=== PATIENT | female | born 1990 | race Caucasian/White ===

== ENCOUNTER 2019-05-22 10:11 | Emergency (ER) | payer OTHER, SELFPAY ==
[2019-05-22 10:30] VITALS: BP 118/75; PULSE 103; RESP 16; TEMP 36.7; O2SAT 100
--- NOTE | 2019-05-22 10:40 | ED.EYEPROB ---
HPI - Eye Problem General Chief complaint: Eye Problems Stated complaint: right eye crusty and red Time Seen by Provider: 05/22/19 10:40 Source: patient and RN notes reviewed History of Present Illness HPI Narrative: Patient is a 28-year-old female presents the urgent care with complaints of right eye redness, tearing, pain. Patient states that started last night. Patient states that she did have her contacts out for sleeping but could not find her glasses in order to drive here. Therefore patient does have her contacts in. Patient denies any known trauma or injury to the eye. States that it was not matting but she does have a lot of clear drainage. No other acute complaints. Patient denies any visual changes. Patient states the eye is sensitive to light. No acute distress noted. Patient read the plan of care. Related Data Allergies Allergy/AdvReac Type Severity Reaction Status Date / Time hydrocodone AdvReac Severe Other Verified 05/22/19 10:41 Review of Systems Review of Systems: Narrative: CONSTITUTIONAL: Denies fever, chills, or sweats. EYES: Denies visual changes; reports of redness, irritation, sensitivity to light to the right eye with clear drainage ENT: Denies rhinorrhea, congestion, sore throat, or otalgia. CARDIOVASCULAR: Denies chest pain, palpitations, or edema. RESPIRATORY: Denies cough or dyspnea. GASTROINTESTINAL: Denies abdominal pain, nausea, vomiting, or diarrhea. GENITOURINARY: Denies dysuria or hematuria. SKIN: Denies rash or itching. MUSCULOSKELETAL: Denies back pain, joint pain, or myalgia. NEUROLOGIC: Denies headache, numbness, or weakness. PMFSH Comments At the time of my signature, I reviewed and agree with the nursing past medical, surgical, social, and family history. There is no relevant family history pertinent to the patient complaint. Exam Narrative: Exam Narrative: GENERAL: This is a well-nourished, well-developed patient, in no apparent distress. HEAD: normocephalic, atraumatic. EYES: PERRL. Sclera clear/white. Moderately injected right conjunctivo-with clear drainage. Right pupil reactive with slightly smaller pupils size then the left at 3mm. vision is grossly intact. EARS: External ears normal NOSE: External nose normal with no obvious nasal discharge THROAT: Mucous membranes moist NECK: Neck supple CARDIOVASCULAR: Regular rate and rhythm without murmurs, gallops, or rubs. RESPIRATORY: Clear to auscultation. Breath sounds equal bilaterally. No wheezes, rales, or rhonchi. SKIN: warm, intact with no suspicious lesions or rash, good texture and turgor. NEURO: awake, alert, and oriented to person, place and time. There were no obvious focal neurologic abnormalities. EXTREMITIES: No clubbing, cyanosis, or edema. Course Vital Signs Vital signs: Vital Signs Temperature 98.0 F 05/22/19 10:30 Pulse Rate 103 H 05/22/19 10:30 Respiratory Rate 16 05/22/19 10:30 Blood Pressure 118/75 05/22/19 10:30 Pulse Oximetry 100 05/22/19 10:30 Temperature 98.0 F 05/22/19 10:30 Pulse Rate 103 H 05/22/19 10:30 Respiratory Rate 16 05/22/19 10:30 Blood Pressure 118/75 05/22/19 10:30 Pulse Oximetry 100 05/22/19 10:30 Reviewed MDM - Eye Problem MDM Narrative Medical decision making narrative: Advised the patient to remove the contacts STARR. Patient should also replace the contacts. Use eyedrops to the right eye as prescribed. Make sure to wipe the applicator tip with an alcohol swab between applications. May use warm compress for comfort. Patient should see her radiator core tester today for reevaluation. If you develop any increase in symptoms prior to radiator core tester appointment?go to the emergency room. Differential Diagnosis Differential diagnosis: Likely corneal abrasion, conjunctivitis, periorbital cellulitis and subconjunctival hemorrhage Critical Care Time Critical Care Time Critical Care Time: No Discharge Plan Discharge Clinical Impression: Bacterial con
== END 2019-05-22 11:00 | disposition home or self-care (01) ==
PROVIDERS: Emergency Provider Nurse Practitioner Family
DX: H10.89 Other conjunctivitis (principal)
CPT/HCPCS: 99213; G0463

== ENCOUNTER 2021-11-20 09:38 | Emergency (ER) | payer OTHER, SELFPAY ==
[2021-11-20 09:46] VITALS: BP 118/78; PULSE 100; RESP 16; TEMP 36.6; O2SAT 97
--- NOTE | 2021-11-20 09:46 | ED.GENADULT ---
HPI - General Adult General Chief complaint: Upper Respiratory Infection Stated complaint: Headache Source: patient, RN notes reviewed and old records reviewed Mode of arrival: ambulatory Limitations: no limitations History of Present Illness HPI narrative: 30-year-old female who presents to [facility] care accompanied by son who is ill with complaints of headache pain across forehead and temples which started yesterday morning, Patient reports that she normally doesn't have headache pain, denies any known fevers, chills, or body aches, states no cough or sore throat. Patient states that her and her son were exposed to COVID on when her son was at [employer] class. Patient reports that she has had COVID vaccinations and Booster and also has had flu shot this season. complaint: headache Onset (ago): day(s) (1) Location: head (frontal) Severity scale (1-10): 7 Treatments prior to arrival: NSAID Related Data Allergies Allergy/AdvReac Type Severity Reaction Status Date / Time hydrocodone AdvReac Severe Other Verified 05/22/19 10:41 Review of Systems Review of Systems: CONSTITUTIONAL: Denies fever, chills, or sweats. EYES: Denies visual changes, redness, or discharge. ENT: Denies rhinorrhea, congestion, sore throat, or otalgia. CARDIOVASCULAR: Denies chest pain, palpitations, or edema. RESPIRATORY: Denies cough or dyspnea. GASTROINTESTINAL: Denies abdominal pain, nausea, vomiting, or diarrhea. GENITOURINARY: Denies dysuria or hematuria. SKIN: Denies rash or itching. MUSCULOSKELETAL: Denies back pain, joint pain, or myalgia. NEUROLOGIC: Positive for headache,no numbness, or weakness. PSYCHIATRIC: Denies anxiety or depression. All systems reviewed & are unremarkable except as noted in HPI and below [facility] Surgical History Surgical History (Updated 11/20/21 @ 17:01 by Michelle Morales NP) H/O tubal ligation History of bunionectomy of left great toe Social History Social History (Updated 11/20/21 @ 16:57 by Michelle Morales NP) Smoking status: Current every day smoker Tobacco type: cigarettes Alcohol intake: current Alcohol use details: social Substance use type: does not use Living arrangements: with family Gender identity (if verbalized by the patient): Female Comments At time of signature, agree with nursing past medical, surgical, social and family history. There is no relevant family history pertinent to the presenting complaint Exam Narrative: GENERAL: Well-appearing, well-nourished, and in no acute distress. HEAD: Normocephalic, atraumatic. EYES: PERRLA and EOMI. ENT: Nares clear, no rhinorrhea or epistaxis. Mucous membranes moist.TM's normal with good light reflex, throat pink with no lesions or exudates or tonsil swelling NECK: Supple.no lymphadenopathy CHEST: Clear to auscultation. No respiratory distress.SAO2 97% on room air HEART: Regular rate and rhythm. No murmur heard. Normal peripheral pulses. ABDOMEN: Soft, nontender, nondistended, normal active bowel sounds. EXTREMITIES: Normal range of motion. No edema. SKIN: Warm, dry, no rash. NEURO: No focal deficits. Alert and oriented x3. Course Course Level of Care: Express Care Visit Vital Signs Vital signs: Vital Signs Temperature 36.6 C 11/20/21 09:46 Pulse Rate 100 11/20/21 09:46 Respiratory Rate 16 11/20/21 09:46 Blood Pressure 118/78 11/20/21 09:46 Pulse Oximetry 97 11/20/21 09:46 Oxygen Delivery Room Air 11/20/21 09:46 Temperature 36.6 C 11/20/21 09:46 Pulse Rate 100 11/20/21 09:46 Respiratory Rate 16 11/20/21 09:46 Blood Pressure 118/78 11/20/21 09:46 Pulse Oximetry 97 11/20/21 09:46 Oxygen Delivery Room Air 11/20/21 09:46 Medical Decision Making Differential Diagnosis Differential Diagnosis: URI, headache pain, viral syndrome,COVID 19 exposure, COVID 19 Medical Records Medical records reviewed: Yes I reviewed the external patient's medical records. Vital Signs Vital Signs
[2021-11-20 18:25] LABS: SARS-CoV-2 RNA PCR Positive
== END 2021-11-20 10:56 | disposition home or self-care (01) ==
PROVIDERS: Emergency Provider Registered Nurse
DX: U07.1 COVID-19 (principal); F17.210 Nicotine dependence, cigarettes, uncomplicated
CPT/HCPCS: 87426; 99213; C9803; G0463; U0003; U0005

== ENCOUNTER 2022-02-23 18:14 | Emergency (ER) | payer OTHER, SELFPAY ==
[2022-02-23 18:35] VITALS: BP 115/69; PULSE 75; RESP 12; TEMP 36.6; O2SAT 100
--- NOTE | 2022-02-23 19:02 | ED.URI ---
HPI - URI/Sore Throat General Chief Complaint: Upper Respiratory Infection Stated Complaint: Throat Problem Time Seen by Provider: 02/23/22 19:17 Source: patient and RN notes reviewed Mode of arrival: ambulatory Limitations: no limitations History of Present Illness HPI Narrative: 31-year-old female presents with concern for trouble swallowing. Reports she feels like there is a ?bubble? in her throat when she swallows. Reports it is worse when she is stressed out. She denies heartburn, nausea, vomiting. She denies food getting stuck. She denies pain with swallowing. She denies fever, body aches, chills, sweats, malaise. She denies respiratory symptoms. MD elicited complaint: other (Trouble swallowing) Related Data Home Medications Medication Instructions Recorded Confirmed etonogestrel 68 mg subdermal 1 implant subdermal ONCE 02/23/22 02/23/22 implant (Nexplanon) Allergies Allergy/AdvReac Type Severity Reaction Status Date / Time hydrocodone AdvReac Severe Anaphylactic Verified 02/23/22 19:10 Shock Review of Systems Review of Systems: CONSTITUTIONAL: Denies malaise, chills, sweats, or fever. EYES: Denies visual changes, redness, or discharge. ENT: Denies rhinorrhea, congestion, sinus pain, otalgia and sore throat. Reports dysphagia CARDIOVASCULAR: Denies chest pain, palpitations, or edema. RESPIRATORY: Denies cough. Denies dyspnea. GASTROINTESTINAL: Denies abdominal pain, nausea, vomiting, diarrhea SKIN: Denies rash or itching. MUSCULOSKELETAL: Denies myalgia. NEUROLOGIC: Denies headache. All systems reviewed & are unremarkable except as noted in HPI and below [facility] Surgical History Surgical History (Updated 11/20/21 @ 17:01 by Michelle Morales NP) H/O tubal ligation History of bunionectomy of left great toe Social History Social History (Updated 11/20/21 @ 16:57 by Michelle Morales NP) Smoking status: Current every day smoker Tobacco type: cigarettes Alcohol intake: current Alcohol use details: social Substance use type: does not use Gender identity (if verbalized by the patient): Female Comments At time of signature, agree with nursing past medical, surgical, social and family history. There is no relevant family history pertinent to the presenting complaint Exam Narrative: GENERAL: Well-appearing, well-nourished, and in no acute distress. HEAD: Normocephalic EYES: PERRLA, conjunctivae clear ENT: Nares clear, no discharge. Mucous membranes moist. TM pearly fleming with sharp light reflex bilaterally; no tragal tenderness. Oropharynx not erythematous without lesions. Tonsils not enlarged and without exudate, no drooling, no hoarseness, no trismus, uvula midline. NECK: Supple. No lymphadenopathy. No thyroidmegaly, carotid easily palpable, no visible or palpable mass CHEST: Clear to auscultation, breath sounds equal. No wheezing, rhonchi, rales, or stridor. No respiratory distress, speaks in full sentences. HEART: Regular rate and rhythm. No murmur heard. SKIN: Warm, dry, no rash. NEURO: Alert and oriented x3. PSYCH: Normal mood and affect Course Course Emergency Course: Patient is aware of diagnosis, understands and agrees to treatment plan. Anticipatory guidance given. Patient agrees to follow-up as directed and is aware of reasons to seek care at the emergency department. Portions of this record may have been created with voice recognition software Level of Care: Express Care Visit Vital Signs Vital signs: Vital Signs Temperature 97.9 F 02/23/22 18:35 Pulse Rate 75 02/23/22 18:35 Respiratory Rate 12 02/23/22 18:35 Blood Pressure 115/69 02/23/22 18:35 Pulse Oximetry 100 02/23/22 18:35 Oxygen Delivery Room Air 02/23/22 18:35 Temperature 97.9 F 02/23/22 18:35 Pulse Rate 75 02/23/22 18:35 Respiratory Rate 12 02/23/22 18:35 Blood Pressure 115/69 02/23/22 18:35 Pulse Oximetry 100 02/23/22 18:35 Oxygen Delivery Room Air
== END 2022-02-23 19:27 | disposition home or self-care (01) ==
PROVIDERS: Emergency Provider Nurse Practitioner
DX: R13.10 Dysphagia, unspecified (principal); F17.210 Nicotine dependence, cigarettes, uncomplicated
CPT/HCPCS: 87081; 87880; 99213; G0463

== ENCOUNTER 2022-03-31 13:08 | Emergency (ER) | payer OTHER, SELFPAY ==
--- NOTE | 2022-03-31 13:16 | ED.URI ---
HPI - URI/Sore Throat General Chief Complaint: Upper Respiratory Infection Stated Complaint: cough achey all over congestion Time Seen by Provider: 03/31/22 13:18 Source: patient and RN notes reviewed Mode of arrival: ambulatory Limitations: no limitations History of Present Illness HPI Narrative: 31-year-old female presents with concern for cough, body aches, fever. Reports she last had a temperature last night about 103. She denies known sick contacts. Reports she has taken Tylenol. MD elicited complaint: cough Related Data Home Medications Medication Instructions Recorded Confirmed etonogestrel 68 mg subdermal 1 implant subdermal ONCE 02/23/22 03/31/22 implant (Nexplanon) Allergies Allergy/AdvReac Type Severity Reaction Status Date / Time hydrocodone AdvReac Severe Anaphylactic Verified 03/31/22 13:19 Shock Review of Systems Review of Systems: CONSTITUTIONAL: Reports malaise, fever. EYES: Denies visual changes, redness, or discharge. ENT: Reports rhinorrhea, congestion, otalgia CARDIOVASCULAR: Denies chest pain, palpitations, or edema. RESPIRATORY: Reports cough. Denies dyspnea. GASTROINTESTINAL: Denies abdominal pain, nausea, vomiting, diarrhea SKIN: Denies rash or itching. MUSCULOSKELETAL: Reports myalgia. NEUROLOGIC: Denies headache. All systems reviewed & are unremarkable except as noted in HPI and below PMFSH Surgical History Surgical History (Updated 11/20/21 @ 17:01 by Michelle Morales NP) H/O tubal ligation History of bunionectomy of left great toe Social History Social History (Updated 11/20/21 @ 16:57 by Michelle Morales NP) Smoking status: Current every day smoker Tobacco type: cigarettes Alcohol intake: current Alcohol use details: social Substance use type: does not use Gender identity (if verbalized by the patient): Female Comments At time of signature, agree with nursing past medical, surgical, social and family history. There is no relevant family history pertinent to the presenting complaint Exam Narrative: GENERAL: Well-appearing, well-nourished, and in no acute distress. HEAD: Normocephalic EYES: PERRLA, conjunctivae clear ENT: Nares clear, turbinates edematous and erythematous, clear discharge. Mucous membranes moist. TM pearly fleming with dull light reflex bilaterally; no tragal tenderness. Oropharynx not erythematous without lesions. Tonsils not enlarged and without exudate, no drooling, no hoarseness, no trismus, uvula midline. NECK: Supple. No lymphadenopathy CHEST: Clear to auscultation, breath sounds equal. No wheezing, rhonchi, rales, or stridor. No respiratory distress, speaks in full sentences. HEART: Regular rate and rhythm. No murmur heard. SKIN: Warm, dry, no rash. NEURO: Alert and oriented x3. PSYCH: Normal mood and affect Course Course Emergency Course: Patient is aware of diagnosis, understands and agrees to treatment plan. Anticipatory guidance given. Patient agrees to follow-up as directed and is aware of reasons to seek care at the emergency department. Portions of this record may have been created with voice recognition software Level of Care: Express Care Visit Vital Signs Vital signs: Reviewed. MDM - URI/Sore Throat MDM Narrative Medical decision making narrative: Differential diagnosis considered: Beckwith virus, strep pharyngitis, allergic rhinitis, upper respiratory tract infection, sinusitis, rhinosinusitis, nasopharyngitis. viral pharyngitis, otitis media, otitis externa, pneumonia, bronchitis, viral cough syndrome, viral syndrome, and influenza. Exam findings show no acute concerns or changes; patient is non-toxic appearing and is in no distress. Patient is appropriate for outpatient treatment and follow-up. Lab Data Attestation: I reviewed the patient's lab results. Critical Care Time Critical Care Time Critical Care Time: No Discharge Plan Discharge Clinical Impression: Influenza A Patient Disposition:
[2022-03-31 13:24] VITALS: BP 109/57; PULSE 110; RESP 16; TEMP 36.4; O2SAT 98
== END 2022-03-31 13:45 | disposition home or self-care (01) ==
PROVIDERS: Emergency Provider Nurse Practitioner
DX: J10.1 Influenza due to other identified influenza virus with other respiratory manifestations (principal); F17.200 Nicotine dependence, unspecified, uncomplicated; Z20.822 Contact with and (suspected) exposure to COVID-19
CPT/HCPCS: 87426; 87804; 99213; C9803; G0463